=== PATIENT | female | born 1975 | race Caucasian/White ===

== ENCOUNTER 2017-11-07 12:21 | Outpatient (CLI) | payer OTHER | END 2017-11-07 12:22 | disposition home or self-care (01) | LOC: BICMAMMO 12:21 | PROVIDERS: ATTEND Internal Medicine | DX: Z12.31 Encounter for screening mammogram for malignant neoplasm of breast (principal) | CPT/HCPCS: 77063; 77067 ==

== ENCOUNTER 2017-12-28 09:42 | Emergency (ER) | payer OTHER ==
[2017-12-28 10:19] LABS: #Lymphocytes 1.4 thou/uL (1.20-3.40); #Monocytes 0.2 thou/uL (0.11-0.59); #Neutrophils 2.3 thou/uL (1.40-6.50); %Basophils 0.5 % (0.0-1.0); %Eosinophils 0.8 % (0.0-10.0); %Lymphocytes 34.5 % (21.0-51.0); %Monocytes 5.3 % (0.0-10.0); %Neutrophils 58.9 % (42.0-75.0); Hemoglobin 14.2 g/dL (12.0-16.0); Mean Corpuscular HGB CONC 34.7 g/dL (32.0-36.0); Mean Corpuscular Hemoglobin 32.5 pg (27.0-31.0); Mean Corpuscular Volume 93.7 fl (81.0-99.0); Mean Platelet Volume 6.9 fL (7.4-10.4); Platelet Count 247 thou/uL (130-400); RBC Distribution Width 11.1 % (11.5-14.5); Red Blood Cell (RBC) Count 4.37 mill/uL (4.20-5.40); White Blood Cell (WBC) Count 3.9 thou/uL (4.8-10.8)
[2017-12-28 10:40] LABS: Bilirubin Small (Negative); Blood, Urine Negative (Negative); Clarity CLOUDY (Clear); Glucose, Urine (Dipstick) Negative (Negative); Leukocyte Negative (Negative); Nitrite Negative (Negative); Protein, Urine (Dipstick) Trace mg/dL (Neg-Trace); Specific Gravity, Urine 1.026 (1.002-1.036); Urobilinogen 0.2 mg/dL (0.2-1.0)
[2017-12-28 10:41] LABS: ALT (SGPT) 17 U/L (8-55); AST (SGOT) 14 U/L (5-34); Albumin 4.1 g/dL (3.5-5.0); Alkaline Phosphatase 49 U/L (40-150); Anion Gap 10 mmol/L (10-20); BUN (Urea Nitrogen) 9 mg/dL (7.0-18.7); Bilirubin, Total 0.7 mg/dL (0.2-1.2); CK (CPK) 45 U/L (29-168); Calc. Creatinine Clearance 0 mL/min (70-130); Calcium 9.5 mg/dL (7.8-10.44); Carbon Dioxide 22 mmol/L (22-29); Chloride 109 mmol/L (98-107); Estimated GFR-MDRD 68; Globulin 3.3 g/dL (2.4-3.5); Glucose 98 mg/dL (70-105); Lipase 34 U/L (8-78); Potassium 3.6 mmol/L (3.5-5.1); Protein, Total 7.4 g/dL (6.0-8.3); Sodium 137 mmol/L (136-145)
[2017-12-28 11:33] LABS: Pregnancy Test - Urine (BHCG) Negative (Negative); Pregu Control Background? CLEAR/WHITE (CLR/WHITE); Pregu Control Bar Appear? YES (CONTROL BAR); Specific Gravity 1.026 (1.002-1.036)
[2017-12-28] MEDS ORDERED: Ondansetron HCl/PF 4 MG/2 ML Vial ONE (11:33)
--- NOTE | 2017-12-28 13:38 | CT ---
ABDOMEN AND PELVIS CT WITH CONTRAST: INDICATIONS: Epigastric pain with nausea and vomiting. FINDINGS: No consolidation at the imaged lung bases. No focal hepatic or splenic lesion. No peripancreatic in flammation. There is prominence of the left urinary collection system, predominantly involving the m id to inferior left renal collecting system and the proximal to mid left ureter. No discrete urolith iasis is seen, within limitations. There is heterogeneity of the uterus and adnexa. The abdominal a kathleen is normal in caliber. No free air or ascites. No acute osseous abnormality. The contrast opacified bowel is normal in appearance. The appendix is not delineated. There is heterogeneity of the uterus and slight prominence of the left adnexa with low density that l ikely relates to ovarian cysts. IMPRESSION: 1. No obvious acute abnormality of the abdomen. 2. Prominence of the left urinary collection system, which may be on the basis of multiple parapelvi c cysts and an extrarenal pelvis. No discrete urolithiasis. Correlation with intravenous pyelogram may prove useful as followup. 3. Heterogeneity of the uterus and adnexae. This may relate to a physiologic etiology. Recommend c linical correlation. If necessary, a pelvic ultrasound may be performed. POS: NAOMI
[2017-12-28] MEDS ORDERED: ISOVUE-370 76%-LOCM 1 ML ONE (14:28)
== END 2017-12-28 14:11 | disposition home or self-care (01) ==
LOC: ERS 09:42
DX: R93.8 Abnormal findings on diagnostic imaging of other specified body structures; K21.9 Gastro-esophageal reflux disease without esophagitis; F41.9 Anxiety disorder, unspecified; R11.2 Nausea with vomiting, unspecified; Z79.899 Other long term (current) drug therapy; F32.9 Major depressive disorder, single episode, unspecified
CPT/HCPCS: 36415; 74177; 80053; 81003; 81025; 82550; 83605; 83690; 84443; 85025; 87040; 93005; 96361; 96374; J2405

== ENCOUNTER 2018-11-26 12:28 | Outpatient (CLI) | payer OTHER ==
--- NOTE | 2018-11-26 14:58 | MMO ---
FILMS COMPARED: The present examination has been compared to a prior imaging study performed at [facility] on 11/07/2017. MAMMOGRAM FINDINGS: The breasts are heterogeneously dense, which could obscure a lesion on mammography. There are benign appearing calcifications seen in both breasts. There are no suspicious masses, calcifications or areas of architectural distortion. IMPRESSION: CALCIFICATIONS IN BOTH BREASTS ARE BENIGN. A ROUTINE FOLLOW-UP MAMMOGRAM IN 1 YEAR IS RECOMMENDED. ACR BI-RADS Category 2 - Benign finding
== END 2018-11-26 12:29 | disposition home or self-care (01) ==
LOC: BICMAMMO 12:28
PROVIDERS: ATTEND Internal Medicine
DX: Z12.31 Encounter for screening mammogram for malignant neoplasm of breast (principal); R92.1 Mammographic calcification found on diagnostic imaging of breast
CPT/HCPCS: 77063; 77067

== ENCOUNTER 2019-11-10 08:58 | Emergency (ER) | payer OTHER ==
[2019-11-10] MEDS ORDERED: Morphine 4 MG/ML VIAL ONE (09:46)
[2019-11-10] MEDS ORDERED: Ketorolac Tromethamine 30 MG/ML VIAL ONE (09:47)
[2019-11-10] MEDS ORDERED: Ondansetron PF 4 MG/2 ML Vial ONE (09:47)
[2019-11-10 09:54] LABS: #Lymphocytes 0.4 thou/uL (1.20-3.40); #Monocytes 0.2 thou/uL (0.11-0.59); #Neutrophils 4.6 thou/uL (1.40-6.50); %Basophils 0.1 % (0.0-1.0); %Eosinophils 0.3 % (0.0-10.0); %Lymphocytes 7.6 % (21.0-51.0); %Monocytes 4.4 % (0.0-10.0); %Neutrophils 87.6 % (42.0-75.0); Hemoglobin 14.6 g/dL (12.0-16.0); Mean Corpuscular HGB CONC 33.6 g/dL (32.0-36.0); Mean Corpuscular Hemoglobin 31.6 pg (27.0-31.0); Mean Platelet Volume 7.4 fL (7.4-10.4); Platelet Count 249 thou/uL (130-400); Red Blood Cell (RBC) Count 4.62 mill/uL (4.20-5.40); White Blood Cell (WBC) Count 5.2 thou/uL (4.8-10.8)
[2019-11-10 10:00] LABS: BHCG - Serum Negative (NEGATIVE); Pregs Control Background? CLEAR/WHITE (CLR/WHITE); Pregs Control Bar Appear? YES (CONTROL BAR)
[2019-11-10 10:24] LABS: ALT (SGPT) 15 U/L (8-55); AST (SGOT) 17 U/L (5-34); Albumin 4.1 g/dL (3.5-5.0); Alkaline Phosphatase 92 U/L (40-110); Anion Gap 14 mmol/L (10-20); BUN (Urea Nitrogen) 12 mg/dL (7.0-18.7); Bilirubin, Total 0.8 mg/dL (0.2-1.2); CK (CPK) 58 U/L (29-168); Calc. Creatinine Clearance 0 mL/min (70-130); Calcium 8.3 mg/dL (7.8-10.44); Carbon Dioxide 22 mmol/L (22-29); Chloride 104 mmol/L (98-107); Estimated GFR-MDRD 75; Glucose 110 mg/dL (70-105); Lipase 9 U/L (8-78); Potassium 3.8 mmol/L (3.5-5.1); Protein, Total 7.1 g/dL (6.0-8.3); Sodium 136 mmol/L (136-145)
--- NOTE | 2019-11-10 11:05 | CT ---
CT ABDOMEN AND PELVIS WITH IV CONTRAST 11/10/2019 CLINICAL INFORMATION: Right lower quadrant abdominal pain and vomiting. COMPARISON: 12/28/2017 Technique: Multiple contiguous axial CT images are obtained through the abdomen and pelvis with IV contrast. Cor onal reformatted images are provided. FINDINGS: Lower Chest: Lung bases are clear. Vessels: Abdominal aorta is normal in caliber without evidence of an aortic dissection or aneurysm. Abdomen: Portal vein:Patent Gallbladder: Within normal limits for CT imaging. Liver: within normal limits. Spleen: within normal limits. Pancreas: within normal limits. Adrenals: within normal limits. Kidneys: Again noted is prominence of the inferior pole left renal collecting system unchanged from t he prior study which is likely attributable to parapelvic renal cysts and associated extrarenal pelvis. Kidneys otherwise have a normal CT appearance. Bowel: There is a tiny hiatal hernia. Loops of small bowel are normal in caliber. Appendix: The appendix is visualized and normal in caliber. Peritoneum: No ascites or free air; no fluid collection. Mesentery and Retroperitoneum: No enlarged mesenteric or retroperitoneal lymph nodes. Abdominal Wall: within normal limits. Pelvis: Reproductive Organs: There is a hypodense right adnexal cystic appearing structure which measures 2.7 cm and likely represents a right ovarian cyst. There are adjacent loops of unopacified fluid-filled small bowel, but this is felt to be related to an adnexal cystic lesion as opposed to a loop of small bowel. Uterus and left adnexal structures have a normal CT appearance. Pelvis within normal limits. Bladder: Incompletely distended but grossly normal in appearance. Bones: within normal limits. IMPRESSION: 1. No acute findings in the abdomen or pelvis. There is no CT evidence of appendicitis. 2. Probable parapelvic renal cyst inferior pole left kidney which has a similar appearance to prior e xam. 3. Right adnexal cystic lesion likely due to a right ovarian cyst.
[2019-11-10 11:24] LABS: Bilirubin Negative (Negative); Blood, Urine Negative (Negative); Clarity Clear (Clear); Glucose, Urine (Dipstick) Normal (Negative); Leukocyte Negative Leu/uL (Negative); Nitrite Negative (Negative); Protein, Urine (Dipstick) 10 mg/dL (Neg-Trace); Urobilinogen Normal mg/dL (Less than 2)
--- NOTE | 2019-11-10 12:07 | ULT ---
Exam: Pelvic ultrasound HISTORY: Pelvic pain COMPARISON: CT pelvis on 11/10/2019 TECHNIQUE: Multiple grayscale and color Doppler images were obtained in a transabdominal and transvag inal pelvic ultrasound. Spectral analysis of the Doppler waveforms of the ovaries were performed. FINDINGS: CERVIX: Nabothian cysts are seen in the cervix. UTERUS: Normal in size without focal abnormality. ENDOMETRIAL STRIPE: 4 mm which is within normal limits for a normal menstruating female patient. No f luid or fluid collection is seen in the endometrial canal. Trace amount of free fluid is present. RIGHT OVARY: There is a multiseptated anechoic cystic structure in the right ovary with mild thickeni ng of septations. This cystic lesion measures 2.5 cm. Flow is visualized in the right ovary. LEFT OVARY:There is a anechoic cystic lesion also seen in the left ovary which demonstrates at least a couple of septations. This cystic lesion measures approximately 2.2 cm in greatest dimensions. Flow is visualized in the left ovary. IMPRESSION: Multiseptated cystic lesions in each ovary; cyst on the right is larger in size with greater number o f septations. Trace amount of free fluid is seen in the right adnexal and in the cul-de-sac. Given the multiseptated appearance of these cystic lesions especially on the right, OB\Business Banking Manager consultation is recommended for further evaluation.
[2019-11-10] MEDS ORDERED: Iopamidol-370 76% 500 ML 1 ML ONE (13:50)
[2019-11-12 23:42] LABS: Chlamydia by PCR Not Detected (NotDetected); GC by PCR Not Detected (NotDetected)
== END 2019-11-10 12:38 | disposition home or self-care (01) ==
LOC: ERS 08:58
DX: N83.201 Unspecified ovarian cyst, right side (principal); K21.9 Gastro-esophageal reflux disease without esophagitis; F41.9 Anxiety disorder, unspecified; F32.9 Major depressive disorder, single episode, unspecified; Z79.899 Other long term (current) drug therapy
CPT/HCPCS: 74177; 76856; 80053; 81003; 82550; 83690; 84703; 85025; 87480; 87491; 87510; 87591; 87660; 96361; 96374; 96375; J1885; J2270; J2405; Q9967

== ENCOUNTER 2023-01-04 21:23 | Emergency (ER) | payer OTHER ==
[2023-01-04] MEDS ORDERED: diphenhydrAMINE 50 MG/ML VIAL ONE (22:56)
[2023-01-04] MEDS ORDERED: Ketorolac Tromethamine 30 MG/ML VIAL ONE (22:56)
[2023-01-04] MEDS ORDERED: Acetaminophen 500 MG TAB ONE (22:56)
[2023-01-04] MEDS ORDERED: Metoclopramide HCl 10 MG/2 ML VIAL ONE (22:56)
== END 2023-01-04 23:25 | disposition home or self-care (01) ==
LOC: ERS 21:23
DX: S06.0X0A Concussion without loss of consciousness, initial encounter (principal); S00.83XA Contusion of other part of head, initial encounter; W54.1XXA Struck by dog, initial encounter
CPT/HCPCS: 96374; 96375; J1200; J1885; J2765